=== PATIENT | female | born 1935 ===

== ENCOUNTER 2021-09-04 15:34 | Outpatient (NON) | payer MEDICARE, MEDICAID, SELFPAY ==
[2021-09-04 17:24] LABS: Appearance Synovial Fluid Hazy (Clear); Color Synovial Fluid Yellow (Colorless); Crystals Synovial Fluid None Seen (None Seen); Source Synovial Fluid Synovial fluid
[2021-09-04 17:25] LABS: Lymphocytes Synovial Fluid 30 %; Monocytes Synovial Fluid 8 %; Neutrophils Synovial Fluid 62 % (0-25); Nucleated Cell Synovial Fluid 5182 /uL (0-200); RBC Synovial Fluid 5518 /uL (0-0)
== END 2021-09-04 15:35 | disposition home or self-care (01) ==
LOC: HOME HLTH 15:48
PROVIDERS: Visit Provider Orthopaedic Surgery
DX: M17.12 Unilateral primary osteoarthritis, left knee (principal); M25.562 Pain in left knee; M25.462 Effusion, left knee
CPT/HCPCS: 89051; 89060